=== PATIENT | female | born 1935 | race Caucasian/White ===

== ENCOUNTER 2024-02-03 19:47 | Inpatient (IN) ==
[2024-02-03 21:13] LABS: ABS Basophils 0.1 10^3/uL (0.0-0.1); ABS Eosinophils 0.3 10^3/uL (0.0-0.5); ABS Lymphocytes 1.7 10^3/uL (1.0-4.8); ABS Monocytes 1.1 10^3/uL (0.0-0.9); ABS Neutrophils 3.3 10^3/uL (1.5-7.6); Eosinophil % 5.1 %; Hematocrit 30.9 % (35-45); Hemoglobin 10.4 g/dL (11.5-14.3); Lymphocyte % 26.7 %; Mean Corpuscular Hemoglobin 27.9 pg (27-33); Mean Corpuscular Hgb Conc 33.6 g/dL (31-36); Mean Corpuscular Volume 83.2 fL (80-97); Mean Platelet Volume 8.8 fL (7.5-11.2); Platelet Count 378 10^3/uL (150-450); Red Blood Count 3.71 10^6/uL (3.63-4.92); Red Cell Distribution Width 15.8 % (12-17); White Blood Count 6.5 10^3/uL (3.8-11.8)
[2024-02-03 21:14] LABS: Urine Appearance Clear; Urine Bilirubin Negative (Negative); Urine Blood Negative (Negative); Urine Color Light-Yellow; Urine Glucose Negative (Negative); Urine Ketones Negative (Negative); Urine Nitrite Negative (Negative); Urine Protein Negative (Negative); Urine Specific Gravity 1.016 (1.002-1.030); Urine Urobilinogen Negative (Negative)
[2024-02-03 21:26] LABS: Urine Bacteria 1+ /HPF (Absent); Urine Red Blood Cell Trace(0-2/hpf) /HPF (0-Trace); Urine White Blood Cell 1+(6-10/hpf) /HPF (0-Trace)
[2024-02-03 21:27] LABS: Activated Partial Thrombo Time 31.4 seconds (26.0-38.0); INR 1.05 (0.83-1.13)
[2024-02-03] MEDS: Acetaminophen IV 1 GM/100ML 1,000 MG/100 ML BAG IV ONE (21:31)
[2024-02-03] MEDS: Lactated Ringers 1000 ml BAG 1,000 ML IV ONE (21:32)
[2024-02-03 21:57] LABS: Albumin 3.7 g/dL (3.2-5.2); Albumin/Globulin Ratio 1.2 (1-3); C Reactive Protein 43.11 mg/L (<8.01); Calcium 9.5 mg/dL (8.6-10.3); Creatinine, Serum 0.62 mg/dL (0.51-0.95); Potassium 4.9 mmol/L (3.5-5.0); Total Bilirubin 0.4 mg/dL (0.2-1.0); Total Protein 6.7 g/dL (6.4-8.9); eGFR CKD-EPI 85.6 (>60)
[2024-02-03 23:20] LABS: High Sensitivity Troponin 1 Hr < 3 pg/mL (<15)
[2024-02-04 13:13] LABS: Anion Gap 8 mmol/L (2-16); Blood Urea Nitrogen 20 mg/dL (6-24); CO2 Carbon Dioxide 24 mmol/L (22-32); Calcium 9.4 mg/dL (8.6-10.3); Chloride 100 mmol/L (101-111); Creatinine, Serum 0.62 mg/dL (0.51-0.95); Glucose 106 mg/dL (70-100); Sodium 132 mmol/L (135-145); eGFR CKD-EPI 85.6 (>60)
[2024-02-04] MEDS: Iohexol 300 (CONTRAST) 10 ML SDV IV ONE (23:40)
[2024-02-05] MEDS: Iodixanol (CONTRAST) 320 MG/ML 100 ML SDV IV ONE (00:28)
[2024-02-05] MEDS ORDERED: Albuterol HFA INHALER 8 gm MDI INH PRN (17:46)
[2024-02-05] MEDS ORDERED: Polyethylene Glycol 3350 17 GM PACKET FEED TUBE PRN (17:47)
[2024-02-05] MEDS ORDERED: Magnesium Hydroxide LIQ 30 ML UDC FEED TUBE PRN (17:47)
[2024-02-05] MEDS: Docusate LIQ 100 MG/10 ML UDC G TUBE SCH (20:26)
[2024-02-05] MEDS: Senna TAB 8.6 mg TAB FEED TUBE SCH (20:26)
[2024-02-05] MEDS: Acetaminophen PED 160 mg/5 ml UDC FEED TUBE PRN (22:07)
[2024-02-05] MEDS: PAIN RELIEVING RUB (MENTHOL/SALICYLATE) 1 APPLIC TUBE TOPICAL PRN (22:55)
[2024-02-06] MEDS: Fluticasone NASAL SPRAY 50MCG 16 gm SPRAY BTL INTRANASAL SCH (07:58)
[2024-02-06] MEDS: ZINC GLUCONATE 30 MG PO SCH (07:58)
[2024-02-06] MEDS: Nystatin SUSPENSION 100,000 UNITS/ML UDC PO SCH (12:29)
[2024-02-06] MEDS: Acetaminophen PED 160 mg/5 ml UDC FEED TUBE SCH (12:30)
[2024-02-06 12:53] LABS: ABS Basophils 0.1 10^3/uL (0.0-0.1); ABS Eosinophils 0.2 10^3/uL (0.0-0.5); ABS Lymphocytes 1.4 10^3/uL (1.0-4.8); ABS Neutrophils 3.8 10^3/uL (1.5-7.6); Eosinophil % 2.9 %; Hematocrit 30.1 % (35-45); Lymphocyte % 21.2 %; Mean Corpuscular Hemoglobin 27.5 pg (27-33); Mean Corpuscular Hgb Conc 33.1 g/dL (31-36); Mean Corpuscular Volume 83.2 fL (80-97); Mean Platelet Volume 8.4 fL (7.5-11.2); Platelet Count 329 10^3/uL (150-450); Red Blood Count 3.62 10^6/uL (3.63-4.92); Red Cell Distribution Width 16.2 % (12-17); White Blood Count 6.4 10^3/uL (3.8-11.8)
[2024-02-06 13:37] LABS: Calcium 9.3 mg/dL (8.6-10.3); Creatinine, Serum 0.61 mg/dL (0.51-0.95); Potassium 4.6 mmol/L (3.5-5.0); eGFR CKD-EPI 85.9 (>60)
[2024-02-06] MEDS: Ondansetron ODT 4 mg TAB 4 MG TAB PO PRN (20:07)
[2024-02-07] MEDS ORDERED: Linezolid 600 MG IVPREMIX(*) 600 MG/300 ML BAG IVPB SCH (13:00)
[2024-02-07 13:29] VITALS: BP 129/63
== END 2024-02-07 14:49 | disposition swing bed (61) | DRG 83 ==
LOC: ED 19:47 → EDHOLD 02-05 16:11 → SUATTDRO 02-05 16:11 → EDHOLD 02-05 16:47 → MED 02-05 17:25
PROVIDERS: ADMIT Internal Medicine; ATTEND Family Medicine

== ENCOUNTER 2024-02-07 14:56 | Observation (INO) ==
[2024-02-07] MEDS ORDERED: Albuterol/Ipratropium NEB.SOL (2.5/0.5 MG) 3 ML NEB.SOLN INH PRN (15:50)
[2024-02-07] MEDS ORDERED: guaiFENesin 100 mg/5 ml LIQ unit dose cup PO PRN (15:50)
[2024-02-07] MEDS ORDERED: Ondansetron ODT 4 mg TAB 4 MG TAB PO PRN (15:50)
[2024-02-07] MEDS ORDERED: Albuterol HFA INHALER 8 gm MDI INH PRN (15:50)
[2024-02-07] MEDS ORDERED: Magnesium Hydroxide LIQ 30 ML UDC PO PRN (15:50)
[2024-02-07] MEDS ORDERED: Polyethylene Glycol 3350 17 GM PACKET PO PRN (15:50)
[2024-02-07] MEDS: Linezolid 600 MG IVPREMIX(*) 600 MG/300 ML BAG IVPB SCH (15:59)
[2024-02-07 16:43] LABS: ABS Basophils 0.1 10^3/uL (0.0-0.1); ABS Eosinophils 0.2 10^3/uL (0.0-0.5); ABS Lymphocytes 1.5 10^3/uL (1.0-4.8); ABS Monocytes 0.8 10^3/uL (0.0-0.9); ABS Neutrophils 4.6 10^3/uL (1.5-7.6); ABS Nucleated RBC 0.01 10^3/ul; Eosinophil % 2.9 %; Hematocrit 30.7 % (35-45); Hemoglobin 10.4 g/dL (11.5-14.3); Mean Corpuscular Hemoglobin 28.2 pg (27-33); Mean Corpuscular Hgb Conc 33.9 g/dL (31-36); Mean Corpuscular Volume 83.4 fL (80-97); Mean Platelet Volume 8.9 fL (7.5-11.2); Nucleated Red Blood Cells % 0.1 %/100WBC (0.0-0.8); Platelet Count 296 10^3/uL (150-450); Red Blood Count 3.69 10^6/uL (3.63-4.92); Red Cell Distribution Width 15.8 % (12-17); White Blood Count 7.2 10^3/uL (3.8-11.8)
[2024-02-07 17:03] LABS: Calcium 9.4 mg/dL (8.6-10.3); Creatinine, Serum 0.57 mg/dL (0.51-0.95); Potassium 4.7 mmol/L (3.5-5.0); eGFR CKD-EPI 87.4 (>60)
[2024-02-07] MEDS: Nystatin SUSPENSION 100,000 UNITS/ML UDC PO SCH (17:11)
[2024-02-07] MEDS: Ondansetron 4 mg VIAL 2 MG/ML 2 ml VIAL IV PRN (20:53)
[2024-02-07] MEDS: Pantoprazole VIAL 40 MG VIAL IV SCH (22:34)
[2024-02-07] MEDS: Senna TAB 8.6 mg TAB PO SCH (22:34)
[2024-02-08 06:46] LABS: ABS Eosinophils 0.3 10^3/uL (0.0-0.5); ABS Lymphocytes 1.3 10^3/uL (1.0-4.8); ABS Monocytes 0.9 10^3/uL (0.0-0.9); ABS Neutrophils 4.1 10^3/uL (1.5-7.6); ABS Nucleated RBC 0.01 10^3/ul; Eosinophil % 4.2 %; Hematocrit 29.1 % (35-45); Hemoglobin 9.8 g/dL (11.5-14.3); Lymphocyte % 19.5 %; Mean Corpuscular Hgb Conc 33.8 g/dL (31-36); Mean Corpuscular Volume 82.6 fL (80-97); Mean Platelet Volume 8.7 fL (7.5-11.2); Nucleated Red Blood Cells % 0.1 %/100WBC (0.0-0.8); Platelet Count 310 10^3/uL (150-450); Red Blood Count 3.52 10^6/uL (3.63-4.92); Red Cell Distribution Width 15.6 % (12-17); White Blood Count 6.6 10^3/uL (3.8-11.8)
[2024-02-08 07:36] LABS: Calcium 9.1 mg/dL (8.6-10.3); Creatinine, Serum 0.59 mg/dL (0.51-0.95); Potassium 4.6 mmol/L (3.5-5.0); eGFR CKD-EPI 86.6 (>60)
[2024-02-08] MEDS: Fluticasone NASAL SPRAY 50MCG 16 gm SPRAY BTL INTRANASAL SCH (08:49)
[2024-02-08] MEDS: Docusate LIQ 100 MG/10 ML UDC PO SCH (20:33)
[2024-02-09 05:12] LABS: ABS Eosinophils 0.2 10^3/uL (0.0-0.5); ABS Lymphocytes 1.5 10^3/uL (1.0-4.8); ABS Monocytes 0.7 10^3/uL (0.0-0.9); ABS Neutrophils 3.8 10^3/uL (1.5-7.6); Eosinophil % 3.9 %; Hematocrit 29.3 % (35-45); Hemoglobin 9.9 g/dL (11.5-14.3); Lymphocyte % 24.4 %; Mean Corpuscular Hemoglobin 27.7 pg (27-33); Mean Corpuscular Hgb Conc 33.6 g/dL (31-36); Mean Corpuscular Volume 82.4 fL (80-97); Mean Platelet Volume 8.7 fL (7.5-11.2); Platelet Count 302 10^3/uL (150-450); Red Blood Count 3.56 10^6/uL (3.63-4.92); Red Cell Distribution Width 15.7 % (12-17); White Blood Count 6.3 10^3/uL (3.8-11.8)
[2024-02-09 05:30] LABS: Calcium 9.3 mg/dL (8.6-10.3); Creatinine, Serum 0.59 mg/dL (0.51-0.95); Potassium 4.5 mmol/L (3.5-5.0); eGFR CKD-EPI 86.6 (>60)
[2024-02-09] MEDS ORDERED: guaiFENesin 100 mg/5 ml LIQ unit dose cup FEED TUBE PRN (07:58)
[2024-02-09] MEDS ORDERED: Magnesium Hydroxide LIQ 30 ML UDC FEED TUBE PRN (08:01)
[2024-02-09] MEDS ORDERED: Polyethylene Glycol 3350 17 GM PACKET FEED TUBE PRN (08:02)
[2024-02-09] MEDS ORDERED: Senna TAB 8.6 mg TAB FEED TUBE SCH (08:03)
[2024-02-09 10:11] VITALS: BP 105/52
== END 2024-02-09 13:56 | disposition swing bed (61) ==
LOC: MED → SUATTDRO 14:56
PROVIDERS: ADMIT Family Medicine; ATTEND Internal Medicine

== ENCOUNTER 2024-02-09 14:25 | Inpatient (IN) ==
[2024-02-09] MEDS ORDERED: Magnesium Hydroxide LIQ 30 ML UDC PO PRN (15:33)
[2024-02-09] MEDS ORDERED: Ondansetron 4 mg VIAL 2 MG/ML 2 ml VIAL IV PRN (15:33)
[2024-02-09] MEDS ORDERED: Senna TAB 8.6 mg TAB PO PRN (15:33)
[2024-02-09] MEDS ORDERED: Polyethylene Glycol 3350 17 GM PACKET PO PRN (15:42)
[2024-02-09] MEDS ORDERED: Albuterol HFA INHALER 8 gm MDI INH PRN (15:42)
[2024-02-09] MEDS ORDERED: Docusate LIQ 100 MG/10 ML UDC PO PRN (15:48)
[2024-02-09] MEDS: Linezolid 600 MG IVPREMIX(*) 600 MG/300 ML BAG IVPB SCH (18:07)
[2024-02-09] MEDS ORDERED: Senna/Docusate 8.6/50 mg (NF) TAB PO SCH (21:00)
[2024-02-09] MEDS: Nystatin SUSPENSION 100,000 UNITS/ML UDC PO SCH (22:27)
[2024-02-09] MEDS: Senna TAB 8.6 mg TAB PO SCH (22:58)
[2024-02-10] MEDS: PAIN RELIEVING RUB (MENTHOL/SALICYLATE) 1 APPLIC TUBE TOPICAL PRN (00:15)
[2024-02-10] MEDS: Fluticasone NASAL SPRAY 50MCG 16 gm SPRAY BTL INTRANASAL SCH (08:17)
[2024-02-10] MEDS: Lansoprazole SUSP ORALSYR 3 MG/ML PEG TUBE SCH (12:02)
[2024-02-11] MEDS: Ondansetron ODT 4 mg TAB 4 MG TAB PO PRN (20:57)
[2024-02-12] MEDS: Simethicone SUSP ORALSYR 66.66 MG/ML PO PRN (23:15)
[2024-02-13] MEDS: Simethicone SUSP ORALSYR 66.66 MG/ML PO SCH (20:13)
[2024-02-15] MEDS: Magnesium Hydroxide LIQ 30 ML UDC PO PRN (12:39)
[2024-02-19 18:27] LABS: ABS Basophils 0.1 10^3/uL (0.0-0.1); ABS Eosinophils 0.3 10^3/uL (0.0-0.5); ABS Monocytes 0.9 10^3/uL (0.0-0.9); ABS Neutrophils 3.2 10^3/uL (1.5-7.6); Eosinophil % 4.9 %; Hematocrit 34.5 % (35-45); Hemoglobin 11.7 g/dL (11.5-14.3); Lymphocyte % 30.9 %; Mean Corpuscular Hemoglobin 28.1 pg (27-33); Mean Corpuscular Hgb Conc 33.9 g/dL (31-36); Mean Corpuscular Volume 82.9 fL (80-97); Mean Platelet Volume 8.3 fL (7.5-11.2); Nucleated Red Blood Cells % 0.1 %/100WBC (0.0-0.8); Platelet Count 259 10^3/uL (150-450); Red Blood Count 4.16 10^6/uL (3.63-4.92); Red Cell Distribution Width 16.1 % (12-17); White Blood Count 6.3 10^3/uL (3.8-11.8)
[2024-02-19 19:27] LABS: Calcium 9.9 mg/dL (8.6-10.3); Creatinine, Serum 0.56 mg/dL (0.51-0.95); Potassium 4.8 mmol/L (3.5-5.0); eGFR CKD-EPI 87.7 (>60)
[2024-02-20] MEDS: Iohexol 300 (CONTRAST) 10 ML SDV IV ONE (03:58)
[2024-02-21] MEDS: Al Hydrox/Mg Hydrox/Simet LIQ 30 ML UDC PO SCH (17:48)
[2024-02-21] MEDS: Al Hydrox/Mg Hydrox/Simet LIQ 30 ML UDC ONE (17:51)
[2024-02-23 09:16] LABS: Hematocrit 35.1 % (35-45); Hemoglobin 11.9 g/dL (11.5-14.3); Mean Corpuscular Hemoglobin 28.1 pg (27-33); Mean Corpuscular Hgb Conc 33.8 g/dL (31-36); Mean Corpuscular Volume 82.9 fL (80-97); Mean Platelet Volume 8.6 fL (7.5-11.2); Platelet Count 251 10^3/uL (150-450); Red Blood Count 4.23 10^6/uL (3.63-4.92); Red Cell Distribution Width 16.1 % (12-17); White Blood Count 5.4 10^3/uL (3.8-11.8)
[2024-02-23 10:17] LABS: Albumin 4.1 g/dL (3.2-5.2); Albumin/Globulin Ratio 1.4 (1-3); Creatinine, Serum 0.57 mg/dL (0.51-0.95); Indirect Bilirubin 0.5 mg/dL (0.3-1.0); Magnesium 1.9 mg/dL (1.9-2.7); Phosphorus 3.9 mg/dL (2.5-5.0); Potassium 4.5 mmol/L (3.5-5.0); Total Bilirubin 0.5 mg/dL (0.2-1.0); Total Protein 7.1 g/dL (6.4-8.9); eGFR CKD-EPI 87.4 (>60)
[2024-02-25] MEDS: Cholecalciferol (VIT D3) 400 units TAB PO SCH (14:28)
[2024-02-25] MEDS: Nystatin TOP POWDER 15 GM BTL TOPICAL PRN (14:29)
[2024-02-26 03:43] LABS: Urine Appearance Clear; Urine Bilirubin Negative (Negative); Urine Blood Negative (Negative); Urine Color Colorless; Urine Glucose Negative (Negative); Urine Ketones Negative (Negative); Urine Nitrite Negative (Negative); Urine Protein Negative (Negative); Urine Specific Gravity 1.006 (1.002-1.030); Urine Urobilinogen Negative (Negative); Urine pH 7.5 (5.0-8.0)
[2024-02-26 04:53] LABS: Urine Bacteria Absent /HPF (Absent); Urine Red Blood Cell Absent /HPF (0-Trace); Urine Squamous Epithelial Cell Present /HPF (Absent); Urine White Blood Cell Trace(0-5/hpf) /HPF (0-Trace)
[2024-02-26] MEDS: Nystatin TOP POWDER 15 GM BTL TOPICAL SCH (11:00)
[2024-02-26] MEDS: guaiFENesin 100 mg/5 ml LIQ unit dose cup PO PRN (20:03)
[2024-03-03 17:25] LABS: Urine Appearance Turbid; Urine Bilirubin Negative (Negative); Urine Blood Negative (Negative); Urine Color Light-Yellow; Urine Glucose Negative (Negative); Urine Ketones Trace (Negative); Urine Nitrite Negative (Negative); Urine Protein Trace (Negative); Urine Specific Gravity 1.015 (1.002-1.030); Urine Urobilinogen Negative (Negative)
[2024-03-03 17:30] LABS: Urine Bacteria 1+ /HPF (Absent); Urine Red Blood Cell Trace(0-2/hpf) /HPF (0-Trace); Urine Squamous Epithelial Cell Present /HPF (Absent); Urine White Blood Cell 2+(11-20/hpf) /HPF (0-Trace)
[2024-03-03 17:39] LABS: ABS Basophils 0.1 10^3/uL (0.0-0.1); ABS Eosinophils 0.2 10^3/uL (0.0-0.5); ABS Lymphocytes 1.2 10^3/uL (1.0-4.8); ABS Monocytes 0.7 10^3/uL (0.0-0.9); ABS Neutrophils 3.4 10^3/uL (1.5-7.6); Eosinophil % 3.1 %; Hemoglobin 11.9 g/dL (11.5-14.3); Lymphocyte % 21.8 %; Mean Corpuscular Hemoglobin 27.1 pg (27-33); Mean Corpuscular Hgb Conc 33.1 g/dL (31-36); Mean Corpuscular Volume 81.8 fL (80-97); Mean Platelet Volume 8.2 fL (7.5-11.2); Nucleated Red Blood Cells % 0.1 %/100WBC (0.0-0.8); Platelet Count 253 10^3/uL (150-450); Red Cell Distribution Width 15.7 % (12-17); White Blood Count 5.5 10^3/uL (3.8-11.8)
[2024-03-03 18:10] LABS: Calcium 9.8 mg/dL (8.6-10.3); Creatinine, Serum 0.52 mg/dL (0.51-0.95); Magnesium 1.7 mg/dL (1.9-2.7); Potassium 4.3 mmol/L (3.5-5.0); eGFR CKD-EPI 89.3 (>60)
[2024-03-07] MEDS: Nystatin SUSPENSION 100,000 UNITS/ML UDC PO SCH (18:32)
[2024-03-08 19:32] VITALS: BP 140/73
== END 2024-03-09 08:30 | DRG 690 ==
LOC: SUATTDRO 14:25 → MED 14:25
PROVIDERS: ADMIT Internal Medicine; ATTEND Internal Medicine